=== PATIENT | female | born 1985 | race Caucasian/White ===

== ENCOUNTER 2017-06-12 17:49 | Emergency (ER) | payer MEDICAID, OTHER ==
[~2017-06-12] VITALS: Ht 157.5 cm; Wt 70.5 kg
[~2017-06-12 17:49] MED LIST: BUPR-93 PO; TRAZ-147 PO
[2017-06-12] MEDS ORDERED: TOPI25 PO (18:00)
[2017-06-12] MEDS ORDERED: TRAZ-144 PO (18:29)
[2017-06-12] MEDS ORDERED: LIDOCAINE HCL/PF 1% 2 ML VIAL IM ONE (18:30)
[2017-06-12] MEDS ORDERED: IBUPROFEN 800 MG TABLET PO ONE (18:30)
[2017-06-12] MEDS ORDERED: CefTRIAXone SODIUM 1 GM/VIAL IM ONE (18:30)
[2017-06-12 19:45] VITALS: BP 131/83
[2017-06-12] MEDS ORDERED: BACITRACIN 0.9 GM PACKET OINTMENT TP ONE (20:15)
== END 2017-06-12 20:19 | disposition home or self-care (01) ==
LOC: EMS 17:59
DX: S91.102A Unspecified open wound of left great toe without damage to nail, initial encounter (principal); L03.032 Cellulitis of left toe; L08.9 Local infection of the skin and subcutaneous tissue, unspecified; M79.675 Pain in left toe(s); F31.9 Bipolar disorder, unspecified; F43.10 Post-traumatic stress disorder, unspecified; F41.9 Anxiety disorder, unspecified; B35.3 Tinea pedis; X58.XXXA Exposure to other specified factors, initial encounter; Y93.89 Activity, other specified; Y92.89 Other specified places as the place of occurrence of the external cause; Y99.9 Unspecified external cause status
CPT/HCPCS: 73630; 96372; 99284; J0696; J3490